=== PATIENT | female | born 1995 | race Caucasian/White ===

== ENCOUNTER 2016-10-03 20:36 | Emergency (ER) | payer MEDICAID ==
[~2016-10-03] VITALS: Ht 152.4 cm; Wt 97.7 kg
[~2016-10-03 20:36] MED LIST: ATARAX 25MG25 MG/TAB PO; BIRTH CONTROL; BUSPAR DIVIDOSE15 MG PO; CLARITIN 1010 MG/TAB PO; DEPAKENE250 MG PO; DEPO-PROVER150 MG/M1 IM; DESYREL DIVIDO150 M1 PO; FLONASEALLERGY NS; LEXAPRO20 MG PO; LEXAPRO5 MG PO; NEXIUM PO; NORCO 325 MG-7.1 TAB PO; PEN-VEE K500 MG PO; PEPCID 20MG TAB20 MG PO; PRILOSEC 20MG20 MG PO; REMERON 15M15 MG/TA1 PO; SEROQUEL 2525 MG/TAB PO; SEROQUEL XR50 MG PO; SEROQUEL50 MG PO
[2016-10-03 20:39] VITALS: TEMP 98.3
[2016-10-03 21:22] LABS: BASO # 0.1 (0.0-0.2); BASO % 0.3 % (0.0-2.0); EOS # 0.2 (0.0-0.7); EOS % 1.3 % (0-4.0); GRAN # 10.9 (1.4-6.5); HEMATOCRIT 43.6 % (37.0-47.0); HEMOGLOBIN 14.9 g/dl (12.5-16.0); LYMPH # 2.9 (1.2-3.4); LYMPH % 19.3 % (20.0-51.0); MEAN CELL VOLUME 90 fl (80.0-100.0); MEAN CORPUSCULAR HEMOGLOBIN 31 pg (27.0-31.0); MEAN CORPUSCULAR HGB CONC 34 g/dl (33.0-37.0); MEAN PLATELET VOLUME 8.6 fl (7.4-10.4); MONO % 6.7 % (1.7-9.3); PLATELET COUNT 300 K/mm3 (130-400); RED BLOOD COUNT 4.84 M/mm3 (4.10-5.30); REDCELL DISTRIBUTION WIDTH-CV 13.4 % (11.5-14.5); WHITE BLOOD COUNT 15.2 K/mm3 (4.8-10.8)
[2016-10-03 21:32] LABS: PROTHROMBIN TIME 10.9 SECONDS (9.7-12.8)
[2016-10-03 21:35] LABS: PARTIAL THROMBOPLASTIN TIME 34.6 SECONDS (26.0-37.0)
[2016-10-03 21:37] LABS: ADJUSTED CALCIUM 9.5 mg/dL (8.4-10.2); ALANINE AMINOTRANSFERASE 54 U/L (9-52); ALBUMIN 4.3 gm/dL (3.5-5.0); ALKALINE PHOSPHATASE 127 U/L (50-136); ANION GAP 12 mmol/L (7-16); BILIRUBIN,TOTAL 0.7 mg/dL (0.0-1.0); BLOOD UREA NITROGEN 7 mg/dL (7-17); CALCIUM 9.7 mg/dL (8.4-10.2); CARBON DIOXIDE 26 mmol/L (22-30); CHLORIDE 100 mmol/L (98-107); CREATININE, serum 0.91 mg/dL (0.52-1.25); GLUCOSE 88 mg/dL (74-106); SODIUM 138 mmol/L (137-145); TOTAL PROTEIN 8.1 gm/dL (6.4-8.2)
[2016-10-03 21:39] LABS: ACETAMINOPHEN < 10 ug/mL (10-30); SALICYLATE < 1.0 mg/dL
[2016-10-03] MEDS ORDERED: MINIPRESS 1M1 MG/CAP PO (21:40)
[2016-10-03] MEDS ORDERED: MINIPRESS2 MG (21:40)
[2016-10-03] MEDS ORDERED: ZOLOFT 50MG50 MG PO (21:43)
[2016-10-03] MEDS ORDERED: DESYREL 100MG100 MG PO (21:43)
[2016-10-03] MEDS ORDERED: SEROQUEL XR300 MG PO (21:43)
[2016-10-03 22:47] LABS: AMPHETAMINE URINE NEGATIVE; BARBITURATES URINE NEGATIVE; BENZODIAZEPINES URINE NEGATIVE; BUPRENORPHINE URINE NEGATIVE; METHADONE URINE NEGATIVE; OPIATES URINE NEGATIVE; OXYCODONE URINE NEGATIVE; PHENCYCLIDINE URINE NEGATIVE; PROPOXYPHENE URINE NEGATIVE; THC CANNABINOIDS URINE NEGATIVE
[2016-10-04 04:14] VITALS: BP 113/68; PULSE 99
== END 2016-10-04 04:29 ==
LOC: COL.ER 20:36
PROVIDERS: Emergency Medicine
DX: T44.6X2A Poisoning by alpha-adrenoreceptor antagonists, intentional self-harm, initial encounter (principal); T43.592A Poisoning by other antipsychotics and neuroleptics, intentional self-harm, initial encounter; R45.851 Suicidal ideations; F41.1 Generalized anxiety disorder; F33.1 Major depressive disorder, recurrent, moderate
CPT/HCPCS: J2060; J7030

== ENCOUNTER 2019-08-07 15:57 | Emergency (ER) | payer MEDICARE ==
[~2019-08-07] VITALS: Ht 152.4 cm; Wt 66.8 kg
[~2019-08-07 15:57] MED LIST changes: +DESYREL 100MG100 MG PO; +MINIPRESS 1M1 MG/CAP PO; +MINIPRESS2 MG; +SEROQUEL XR300 MG PO; +ZOLOFT 50MG50 MG PO
[2019-08-07 16:04] VITALS: TEMP 97.6
[2019-08-07 16:33] LABS: COLLECTION METHOD CLEAN CATCH
[2019-08-07 16:46] LABS: BASO % 0.3 % (0.0-2.0); EOS % 0.5 % (0-4.0); GRAN % 68.1 % (42.2-75.2); HEMATOCRIT 42.9 % (37.0-47.0); HEMOGLOBIN 14.4 g/dl (12.5-16.0); LYMPH # 2.2 (1.2-3.4); LYMPH % 24.9 % (20.0-51.0); MEAN CELL VOLUME 92 fl (80.0-100.0); MEAN CORPUSCULAR HEMOGLOBIN 31 pg (27.0-31.0); MEAN CORPUSCULAR HGB CONC 34 g/dl (33.0-37.0); MEAN PLATELET VOLUME 9.4 fl (7.4-10.4); MONO # 0.5 (0.1-0.6); MONO % 5.9 % (1.7-9.3); MUCOUS Present /lpf; PH 5 (5-8); PLATELET COUNT 279 K/mm3 (130-400); RED BLOOD COUNT 4.67 M/mm3 (4.10-5.30); SQUAMOUS EPITHELIAL 0-2 /hpf; URINE APPEARANCE Clear; URINE BACTERIA None Seen /hpf; URINE BILIRUBIN Negative (NEGATIVE); URINE BLOOD Negative (NEGATIVE); URINE COLOR Yellow; URINE GLUCOSE Negative (NEGATIVE); URINE KETONE 2+ (NEGATIVE); URINE LEUKOCYTE ESTERASE Trace (NEGATIVE); URINE NITRATE Negative (NEGATIVE); URINE PROTEIN(semi-quant) Negative (NEGATIVE); URINE RBC 0-2 /hpf; URINE UROBILINOGEN Negative (NEGATIVE)
[2019-08-07 16:58] LABS: ACETAMINOPHEN < 10 ug/mL (10-30); ALANINE AMINOTRANSFERASE 17 U/L (9-52); ALBUMIN 4.4 gm/dL (3.5-5.0); ALCOHOL(ethanol),MEDICAL < 10 mg/dL; ALKALINE PHOSPHATASE 65 U/L (50-136); ANION GAP 9 mmol/L (7-16); AST,SGOT 22 U/L (15-37); BILIRUBIN,TOTAL 0.7 mg/dL (0.0-1.0); BLOOD UREA NITROGEN 11 mg/dL (7-17); CALCIUM 9.3 mg/dL (8.4-10.2); CARBON DIOXIDE 27 mmol/L (22-30); CHLORIDE 104 mmol/L (98-107); CREATININE, serum 0.82 (0.52-1.25); GLUCOSE 112 mg/dL (74-106); POTASSIUM 3.3 mmol/L (3.4-5.0); SALICYLATE < 1.0 mg/dL; SODIUM 139 mmol/L (137-145); TOTAL PROTEIN 7.6 gm/dL (6.4-8.2)
[2019-08-07 17:02] LABS: TRICYCLIC ANTIDEPRESS URINE NEGATIVE
[2019-08-07 20:32] VITALS: BP 102/65; PULSE 72
== END 2019-08-07 20:40 | disposition home or self-care (01) ==
LOC: COL.ER 15:57
PROVIDERS: Family Medicine
DX: F32.9 Major depressive disorder, single episode, unspecified (principal); K21.9 Gastro-esophageal reflux disease without esophagitis; R45.851 Suicidal ideations